=== PATIENT | male | born 1960 | race Caucasian/White ===

== ENCOUNTER 2017-01-20 07:24 | Day surgery (SDC) | payer BC, OTHER ==
[2017-01-17 12:18] VITALS: BMI 23.0
[2017-01-20] MEDS ORDERED: PROPOFOL 20 ML ONE ×2 (07:27)
[2017-01-20] MEDS ORDERED: LIDOCAINE HCL/PF 2% SDV 5ML VIAL ONE (07:43)
[2017-01-20 09:50] VITALS: BP 107/78; PULSE 53; TEMP 98.1
== END 2017-01-20 09:52 | disposition home or self-care (01) ==
LOC: FASU-ENDO 07:24
PROVIDERS: ATTEND Internal Medicine Gastroenterology
PROC: 0DJD8ZZ Inspection of Lower Intestinal Tract, Via Natural or Artificial Opening Endoscopic (ICD-10-PCS; principal; 2017-01-20 08:19)
DX: Z86.010 Personal history of colon polyps (principal)